=== PATIENT | female | born 1985 | race Two or more races ===

== ENCOUNTER 2017-10-27 11:24 | Emergency (ER) | payer MEDICAID, OTHER ==
[~2017-10-27] VITALS: Ht 160 cm; Wt 104.3 kg
[2017-10-27 11:35] VITALS: BP 123/57
[2017-10-27] MEDS ORDERED: ACETAMINOPHEN 325 MG TABLET ONE (11:54)
[2017-10-27] MEDS ORDERED: ACETAMINOPHEN 325 MG TABLET PO ONE (12:00)
== END 2017-10-27 12:10 | disposition home or self-care (01) ==
LOC: ER 11:25
DX: O26.892 Other specified pregnancy related conditions, second trimester (principal); M23.8X2 Other internal derangements of left knee; M25.562 Pain in left knee; Z3A.21 21 weeks gestation of pregnancy
CPT/HCPCS: 99282; A4606; Z7610

== ENCOUNTER 2022-04-27 23:13 | Emergency (ER) | payer OTHER ==
[~2022-04-27] VITALS: Ht 160 cm; Wt 104.3 kg
[2022-04-28 03:07] VITALS: BP 123/78
--- NOTE | 2022-04-28 03:07 | NUR ---
BIBS. GEN BODY RASH AND ITCHING X 2 WEEKS. PT A/OX4. TOLERATING R/A WELL WITH NO RESP DISTRESS. CONNECTED PT TO POX AND MONITOR.
--- NOTE | 2022-04-28 03:28 | NUR ---
Patient discharged to home in stable condition. Written and verbal after care instructions given. Patient verbalizes understanding of instruction.
== END 2022-04-28 03:31 | disposition home or self-care (01) ==
LOC: ER 04-28 00:35
DX: R21 Rash and other nonspecific skin eruption (principal); L29.9 Pruritus, unspecified; T14.8XXA Other injury of unspecified body region, initial encounter; W57.XXXA Bitten or stung by nonvenomous insect and other nonvenomous arthropods, initial encounter; Y93.89 Activity, other specified; Y92.89 Other specified places as the place of occurrence of the external cause; Y99.8 Other external cause status
CPT/HCPCS: 99281; J7060